=== PATIENT | male | born 1965 | race African-American/Black ===

== ENCOUNTER 2016-09-16 13:30 | Emergency (ER) | payer OTHER ==
--- NOTE | 2016-09-16 13:33 | ED.REPORT ---
HPI-Cardiac Arrest Date of Service Sep 16, 2016 ED Provider: Dr. Lozoya Pt is a 51 y/o male w/ unknown PMHx presenting to the ED via EMS due to cardiac arrest which occured just prior to arrival. The patient was headed to [facility] ED with complaints of SOB and dizziness and went into a parking lot to call EMS. Upon EMS arrival he was complaining of shortness of breath and dizziness and feeling generally unwell for the past 2 days. 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 EMS witnessed a syncopal episode which rapidly and found him to be pulseless. CPR was started and he was initially in pulseless electrical activity. He was intubated and received 3 rounds of epinephrine prior to arrival. He was additionally defibrillated x1 for what appeared to be VT or V. fib per EMS. He was given with 1 amp of calcium gluconate due to history of dialysis. Bedside blood glucose 221. Upon arrival to the ED emergent care was performed as below. No family members present and no advanced directive known. 1334: 1 mg epi, No pulse, no rhythm 1336: no pulse, no rhythm 1337: Calcium chloride given 1338: No pulse, possible V-fib rhythm 1339: Shock given, appears in V-fib 1340: 1 mg epi 1340: no pulse, asystole 1342: amiodarone 300 mg given 1342: no pulse, some PVCs on rhythm 1344: no pulse, some PVCs, very subtle organized cardiac contractility 1346: 1 mg epi 1347: few sinus beats, no pulse 1349: 2 sinus beats, no pulse, no organized contractility 1350: time of called by Sourav Lozoya MD Nursing Notes Stated Complaint: CPR IN PROGRESS Nursing Notes Reviewed: Yes General Time Seen by Provider: 13:33 Chief Complaint Other (Witnessed cardiac arrest by medics) Context: Resuscitation: Initial rhythm V Fib, Initial rhythm V tach Hx Obtained From: EMS Unable to Obtain Hx: Patient condition Arrived By: Ambulance Onset Occurred: Just prior to arrival Past Medical History Past Surgical History Kidney transplant per medics Unable to Obtain History Past medical history, Past surgical history, Family history, Smoking history, Social history, Occupation, Ambulatory status Review of Systems Unable to Obtain ROS Patient condition Physical Exam Initial Vital Signs SEE RN NOTES. Initial VS: Reviewed, Vital signs abnormal General: CPR in progress, intubated with ET tube in place Respiratory / Chest: Breath sounds = bilat Intubated with ET tube in place Cardiovascular: Asystole No pulses Very infrequent disorganized cardiac contractility Abdomen: Atraumatic, Soft Unable to assess secondary to CPR Head/eyes: Unable to assess secondary to CPR Neck: Unable to assess secondary to CPR Back: Unable to assess secondary to CPR Skin: Atraumatic Mottled cool skin Neuro: Unresponsive Unable to assess secondary to CPR Psych: Unable to assess secondary to CPR Procedures Procedure Notes: IO placed left tibia by hospitalist resident under observation by ED MD at 13:46. Re-Eval/Medical Decision Med Decision/Clinical Course Pt is a 51 y/o male w/ unknown PMHx presenting to the ED via EMS due to cardiac arrest which occured just prior to arrival. The patient was headed to [facility] ED with complaints of SOB and dizziness and went into a parking lot to call EMS. Upon EMS arrival he was complaining of shortness of breath and dizziness and feeling generally unwell for the past 2 days. 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 EMS witnessed a syncopal episode which rapidly and found him to be pulseless. CPR was started and he was initially in pulseless electrical activity. He was intubated and received 3 rounds of epinephrine prior to arrival. He was additionally defibrillated x1 for what appeared to be VT or V. fib per EMS. He was given with 1 amp of calcium gluconate due to history of dialysis. Bedside blood glucose 221. Upon arrival to the ED emergent care was performed as below. No family members present and no advanced directive known. Upon arrival to the emergency department the patient was intubated with 7.5 ETT , with easy to bag and had good bilateral breath sounds. Resuscitation was performed as below: 1334: 1 mg epi, No pulse, no rhythm 1336: no pulse, no rhythm 1337: Calcium chloride given 1338: No pulse, possible V-fib rhythm 1339: defibrilated at 200 joules 1340: 1 mg epi 1340: no pulse, asystole 1342: amiodarone 300 mg given 1342: no pulse, some PVCs on rhythm 1344: no pulse, some PVCs, very weak organized cardiac contractility on bediside US 1346: 1 mg epi 1347: few sinus beats, no pulse 1349: 2 sinus beats, no pulse, no organized contractility on bedisde US 1350: time of called Cause of the patient's sudden cardiac remains unclear. The acuity of the onset and his complaints just prior to onset I suspect that he may have suffered a massive myocardial infarction though this is speculative and hyperkalemia/arrhythmia does remain a possibility though the patient did not respond to multiple rounds of calcium gluconate/calcium chloride. Patient's arrived and she was updated. She stated that he was very sick with hemodialysis and renal transplant and that he had not recently been particularly compliant with his medications. That being said this was quite unexpected for his . Re-Evaluation/Progress : Time of Eval: 14:27 Re-Evaluation/Progress Note: has arrived and the case was discussed. Counseled Regarding: Diagnosis Discharge & Departure Impression: Primary Impression: Cardiac arrest Additional Impressions: History of renal transplant Hemodialysis patient Disposition: All VS Reviewed: Yes Condition: Crit Care Except Billable Proc Time Spent: 30-74 minutes Services Performed: Patient management by me, Time spent at bedside, Reviewing test results, Reviewing imaging, Discussing patient care, Documentation in record, Time with fam/surrogate Scribe Attestation Portions of this note were transcribed by Kelvin Christopher. I, Dr. Lozoya personally performed the history, physical exam and medical decision-making; I reviewed and confirmed the accuracy of the information in the transcribed note. Signed by Lisbeth Tobias, 09/16/16 - 1350 Sourav Lozoya MD Sep 16, 2016 13:32 KELVIN CHRISTOPHER Sep 16, 2016 13:56
== END 2016-09-16 17:48 | disposition expired ==
LOC: SED 13:30 → EDBD 13:30 → SED 17:48
DX: I46.9 Cardiac arrest, cause unspecified (principal); R73.9 Hyperglycemia, unspecified; Z94.0 Kidney transplant status; Z99.2 Dependence on renal dialysis